=== PATIENT | male | born 1950 | race Caucasian/White ===

== ENCOUNTER → 2020-10-22 10:16 | Outpatient (CLI) | payer MEDICARE, OTHER, SELFPAY ==
[2020-10-22 11:29] LABS: Add Manual Diff / Slide Review NO; Basophils Absolute Auto 0 /uL (0-100); Basophils Percent Auto 0.8 % (0-2); Eosinophils Absolute Auto 100 /uL (0-450); Eosinophils Percent Auto 1.2 % (2-4); Hematocrit 37.8 % (41-53); Hemoglobin 12.2 g/dL (13.5-17.5); Lymphocytes Absolute Auto 1600 /uL (1100-4500); Mean Corpuscular HGB Conc 32.4 % (30-36); Mean Corpuscular Hemoglobin 27.4 PG (26-34); Mean Corpuscular Volume 84.7 fL (80-100); Monocytes Absolute Auto 400 /uL (0-900); Monocytes Percent Auto 7.8 % (3-14); Neutrophils Absolute Auto 3000 /uL (1500-7000); Neutrophils Percent Auto 58.2 % (50-75); Platelet Count 320 X10^3/uL (150-400); Red Blood Cell Count 4.46 X10^6/uL (4.5-5.9); Red Cell Distribution Width 13.5 % (11.6-14.8); White Blood Cell Count 5.1 X10^3/uL (4.5-11.0)
[2020-10-22 11:44] LABS: Alanine Aminotransferase 20 IU/L (<50); Albumin 4.5 g/dL (3.5-5.0); Albumin Globulin Ratio 1.3 (1.0-2.8); Alkaline Phosphatase 82 U/L (38-126); Aspartate Aminotransferase 32 IU/L (17-59); BUN Creatinine Ratio 10.5 (6-22); Bilirubin Total 0.5 mg/dL (0.2-1.3); Blood Urea Nitrogen 9 mg/dL (9-20); C-Reactive Protein Quant 2.5 mg/dL (<1.0); Calcium 9.5 mg/dL (8.4-10.2); Carbon Dioxide 27 mmol/L (22-32); Chloride 103 mmol/L (98-107); Estimated Glomerular Filt Rate > 60.0 mL/min (>60); Globulin 3.4 g/dL (1.7-4.1); Glucose 93 mg/dL (80-110); HEMOLYSIS < 15 (0-50); Lipase 117 U/L (23-300); Potassium 4.4 mmol/L (3.4-5.1); Sodium 138 mmol/L (137-145); Total Protein 7.9 g/dL (6.3-8.2)
--- NOTE | 2020-10-22 11:54 | DI.CT.S_ITS ---
PROCEDURE: CT ABDOMEN PELVIS W CON INDICATIONS: Unspecified abdominal pain TECHNIQUE: After the administration of oral and intravenous contrast, axial sections were acquired from the lung bases to the pubic symphysis. Coronal and sagittal reformats were performed. For radiation dose reduction, the following was used: automated exposure control, adjustment of mA and/or kV according to patient size. COMPARISON:[facility], CT, IVP (ABD & PEL WWO CONTRAST), 03/23/2012, 14:52. FINDINGS: Image quality: Excellent. Lung bases: Unremarkable. Heart: No significant findings. ABDOMEN: Liver: Unremarkable. Gallbladder: Unremarkable. Biliary ducts: Unremarkable. Pancreas: Unremarkable. Spleen: Numerous tiny calcified granulomata. Otherwise unremarkable.. Adrenal Glands: Unremarkable. Kidneys and Ureters: Unremarkable. Stomach and Bowel: Extensive sigmoid diverticulosis without evidence of diverticulitis. No obstructing or constricting bowel lesions. Peritoneum: There is a single relatively low-density mass density in the peritoneal fat in the left lower quadrant at the level of the acetabulum of the right hip measuring approximately 2.6 x 2.1 cm. It is of uncertain etiology. No other suspicious peritoneal nodules are seen. No abnormal intraperitoneal fluid. No free air. Ventral Wall: No hernia. Abdominal Nodes: No retroperitoneal or mesenteric adenopathy by size criteria. Vessels: Aorta and inferior vena cava are normal in size. PELVIS: Pelvic Organs: Unremarkable. Bladder: Mild diffuse bladder wall thickening. Enlarged prostate.. Pelvic Nodes: No enlarged lymph nodes. Miscellaneous: Fat containing right inguinal hernia. Bones: No lytic or blastic lesions. No compressions. IMPRESSION: 1. No evidence of acute abdominal process. 2. There is a small peritoneal mass in the right lower quadrant anteriorly at the level of the right acetabulum measuring approximately 2.6 cm in maximum diameter. It is of uncertain etiology. Cannot exclude malignancy. It may potentially represent a desmoid tumor or fibroma. 3. Extensive sigmoid diverticulosis. 4. Enlarged prostate, mild bladder wall thickening. Comment: Consider follow-up CT in 4-6 months to document stability or change in the anterior peritoneal lesion in the right lower quadrant. Dictated by: Andrews Raya M.D. on 10/22/2020 at 16:50 Approved by: Andrews Raya M.D. on 10/22/2020 at 17:03
[2020-10-22 11:55] LABS: Erythrocyte Sedimentation Rate 15 MM/HR (0-15)
== END ==
PROVIDERS: PCP Family Medicine; Referring Provider Family Medicine; Visit Provider Family Medicine
DX: R10.9 Unspecified abdominal pain (principal); R19.09 Other intra-abdominal and pelvic swelling, mass and lump; K57.30 Diverticulosis of large intestine without perforation or abscess without bleeding; N40.0 Benign prostatic hyperplasia without lower urinary tract symptoms
CPT/HCPCS: 36415; 74177; 80053; 83690; 85025; 85651; 86140

== ENCOUNTER → 2021-04-15 11:22 | Outpatient (CLI) | payer MEDICARE, BC, SELFPAY ==
--- NOTE | 2021-04-15 11:29 | DI.CT.S_ITS ---
PROCEDURE: CT ABDOMEN PELVIS W CON INDICATIONS: Right lower abdominal mass on CT 10/22/20 TECHNIQUE: After the administration of oral and IV contrast, axial sections were acquired from the lung bases to the pubic symphysis. Coronal and sagittal reformats were performed. For radiation dose reduction, the following was used: automated exposure control, adjustment of mA and/or kV according to patient size. COMPARISON: [facility], CT, CT ABDOMEN PELVIS W CON, 10/22/2020, 11:58. FINDINGS: Image quality: Excellent. Lung bases: Left basilar dependent atelectasis is seen posteriorly. Heart: No significant findings. ABDOMEN: Liver: Liver is normal in size. Mild hepatic steatosis is seen, no discrete hepatic lesion. Gallbladder: Within normal limits. Biliary ducts: Unremarkable. Pancreas: Tiny hypodensity involving posterior aspect of pancreatic body/tail junction and measures 4 mm in size series 2, image 20. This was likely present on previous study series 2, image 22 and likely represent small cyst versus side branch IPMN. No peripancreatic edema or fluid is seen. Spleen: Multiple calcified granuloma are seen scattered in splenic parenchyma. Spleen is normal in size. Adrenal Glands: Unremarkable. Kidneys and Ureters: Unremarkable. Stomach and Bowel: There is no bowel obstruction or abnormal bowel wall thickening. Extensive sigmoid diverticulosis is again seen without colonic wall thickening or pericolonic fat stranding. No abscess collection. Peritoneum: No abnormal intraperitoneal fluid. No free air. Ventral Wall: No hernia. Abdominal Nodes: Compared to previous study, previously described hypodense lesion involving right lower quadrant mesenteric fat now measures approximately 2 x 1.8 cm in size series 2, image 72 compared to 2.1 x 2.6 cm in size on previous study. No retroperitoneal lymphadenopathy is seen by size criteria. No other mesenteric soft tissue mass or lymphadenopathy is noted. Vessels: Aorta and inferior vena cava are normal in size. Moderate atherosclerotic calcifications throughout abdominal aorta and bilateral iliac arteries are seen. PELVIS: Pelvic Organs: Enlarged prostate gland with mass effect on floor of urinary bladder is seen. Bladder: There is mild diffuse bladder wall thickening, no discrete bladder wall mass. Pelvic Nodes: Mildly prominent right inguinal lymph node is noted measures 1.2 cm in short axis diameter series 2, image 83 and contains benign appearing fatty hilum. Miscellaneous: Moderate size right inguinal hernia is noted containing fat only. Bones: No suspicious intraosseous lesion is seen. No acute vertebral body compression fracture. IMPRESSION: 1. Interval decrease in size of patient's known right lower quadrant peritoneal soft tissue density mass now measures 2 x 1.8 cm in size compared to 2.1 x 2.6 cm in size on previous study. Consider additional CT follow-up in 6-12 month. 2. No new peritoneal mass. No retroperitoneal lymphadenopathy. Nonspecific and benign-appearing mildly enlarged right inguinal lymph node as above. 3. Stable 4 mm hypodensity involving posterior pancreatic body/tail junction likely represent small IPMN. 4. Extensive sigmoid diverticulosis without evidence of acute diverticulitis. 5. Enlarged prostate gland with mass effect on floor of urinary bladder. Diffuse bladder wall thickening. No discrete bladder wall mass. Dictated by: Rahat Buck M.D. on 04/15/2021 at 16:20 Approved by: Rahat Buck M.D. on 04/15/2021 at 16:27
[2021-04-15 13:04] LABS: Add Manual Diff / Slide Review NO; Basophils Absolute Auto 100 /uL (0-100); Basophils Percent Auto 1.1 % (0-2); Eosinophils Absolute Auto 0 /uL (0-450); Eosinophils Percent Auto 1.1 % (2-4); Hematocrit 38.1 % (41-53); Hemoglobin 12.5 g/dL (13.5-17.5); Lymphocytes Absolute Auto 1500 /uL (1100-4500); Lymphocytes Percent Auto 32.7 % (25-40); Mean Corpuscular HGB Conc 32.7 % (30-36); Mean Corpuscular Hemoglobin 27.8 PG (26-34); Mean Corpuscular Volume 85.1 fL (80-100); Monocytes Absolute Auto 300 /uL (0-900); Neutrophils Absolute Auto 2700 /uL (1500-7000); Neutrophils Percent Auto 58.1 % (50-75); Platelet Count 295 X10^3/uL (150-400); Red Blood Cell Count 4.48 X10^6/uL (4.5-5.9); White Blood Cell Count 4.6 X10^3/uL (4.5-11.0)
[2021-04-15 13:20] LABS: Alanine Aminotransferase 22 IU/L (<50); Albumin 4.6 g/dL (3.5-5.0); Albumin Globulin Ratio 1.3 (1.0-2.8); Alkaline Phosphatase 65 U/L (38-126); Aspartate Aminotransferase 32 IU/L (17-59); BUN Creatinine Ratio 12.9 (6-22); Bilirubin Total 0.7 mg/dL (0.2-1.3); Blood Urea Nitrogen 12 mg/dL (9-20); Calcium 9.2 mg/dL (8.4-10.2); Carbon Dioxide 30 mmol/L (22-32); Chloride 102 mmol/L (98-107); Cholesterol 210 mg/dL (140-199); Estimated Glomerular Filt Rate > 60.0 mL/min (>60); Globulin 3.6 g/dL (1.7-4.1); Glucose 95 mg/dL (80-110); HDL Cholesterol 66 mg/dL (40-60); HEMOLYSIS < 15 (0-50); LDL Cholesterol Calculated 127 mg/dL (<100); Potassium 4.6 mmol/L (3.4-5.1); Sodium 139 mmol/L (137-145); Total Protein 8.2 g/dL (6.3-8.2); Triglycerides 83 mg/dL (35-150)
[2021-04-15 13:50] LABS: Prostate Specific Antigen 2.28 ng/mL (0.10-4.00)
[2021-04-15 14:30] LABS: TSH w/ Reflex to FT4 1.55 uIU/mL (0.47-4.68)
[2021-04-15 19:58] LABS: Hemoglobin A1C% w Est Avg Glu 6.1 % (4.0-6.0)
== END ==
PROVIDERS: PCP Family Medicine; Referring Provider Surgery; Visit Provider Surgery
DX: R19.03 Right lower quadrant abdominal swelling, mass and lump (principal); R97.20 Elevated prostate specific antigen [PSA]; Z13.29 Encounter for screening for other suspected endocrine disorder; Z13.0 Encounter for screening for diseases of the blood and blood-forming organs and certain disorders involving the immune mechanism; Z13.6 Encounter for screening for cardiovascular disorders; Z13.220 Encounter for screening for lipoid disorders; Z13.21 Encounter for screening for nutritional disorder; K76.0 Fatty (change of) liver, not elsewhere classified; N40.0 Benign prostatic hyperplasia without lower urinary tract symptoms; I25.10 Atherosclerotic heart disease of native coronary artery without angina pectoris; K57.30 Diverticulosis of large intestine without perforation or abscess without bleeding; R59.0 Localized enlarged lymph nodes
CPT/HCPCS: 36415; 74177; 80053; 80061; 82306; 83036; 84153; 84443; 85025; Q9967

== ENCOUNTER → 2021-10-25 11:53 | Outpatient (CLI) | payer MEDICARE, OTHER, SELFPAY ==
--- NOTE | 2021-10-25 11:55 | DI.RAD.S_ITS ---
PROCEDURE: XR ANKLE RT MIN 3V INDICATIONS: right ankle injury TECHNIQUE: 3 views of the ankle were acquired. COMPARISON: None. FINDINGS: Bones: No fractures or dislocations. Ankle mortise is normally aligned. No suspicious bony lesions. Lateral soft tissue swelling present without radiopaque foreign body. Soft tissues: No tibiotalar joint effusion. Achilles tendon appears normal. IMPRESSION: Soft tissue swelling without fracture or foreign body Approved by: Slade Ferrell M.D. on 10/25/2021 at 12:14
== END ==
PROVIDERS: PCP Family Medicine; Referring Provider Registered Nurse; Visit Provider Registered Nurse
DX: M25.571 Pain in right ankle and joints of right foot (principal); M25.471 Effusion, right ankle
CPT/HCPCS: 73610